=== PATIENT | male | born 1955 | race Caucasian/White ===

== ENCOUNTER 2017-01-14 14:00 | Outpatient (CLI) | payer OTHER ==
[2013-05-05 11:54] VITALS: O2SAT 100
== END 2017-01-14 14:01 | disposition home or self-care (01) ==
LOC: CONVCARE 14:00
PROVIDERS: ATTEND Orthopaedic Surgery
DX: M25.512 Pain in left shoulder (principal)
CPT/HCPCS: 73030

== ENCOUNTER 2018-05-07 08:52 | Day surgery (SDC) | payer OTHER ==
[~2018-05-07 08:52] MED LIST: LIDOCAINE HCL 1% MPF 30 SOL ONE; PROPOFOL 500 MG/50 ML EMU IV ONE
[2018-05-07 11:08] VITALS: BP 107/75; PULSE 60; RESP 20; TEMP 97; O2SAT 96
== END 2018-05-07 11:20 | disposition home or self-care (01) ==
LOC: SURG 08:52
PROVIDERS: ATTEND Surgery
DX: Z12.11 Encounter for screening for malignant neoplasm of colon (principal)
CPT/HCPCS: J2001; J2704